=== PATIENT | female | born 1990 | race Hispanic/Latino ===

== ENCOUNTER 2018-01-14 13:11 | Emergency (ER) | payer BC ==
[~2018-01-14] VITALS: Ht 165.1 cm; Wt 51.7 kg
[2018-01-14] MEDS ORDERED: ACETAMINOPHEN 325 MG TAB PO ONE (13:45)
[2018-01-14] MEDS ORDERED: ZOFRAN ODT4 MG SL (14:39)
== END 2018-01-14 14:40 | disposition home or self-care (01) ==
LOC: FSED 13:11
DX: R11.2 Nausea with vomiting, unspecified (principal); B34.9 Viral infection, unspecified
CPT/HCPCS: 81003; 81025; 83518; 87400; 99283